=== PATIENT | male | born 1960 | race Caucasian/White ===

== ENCOUNTER 2018-05-06 18:57 | Inpatient (IN) | payer OTHER ==
[~2018-05-06] VITALS: Ht 165.1 cm; Wt 79.4 kg
--- NOTE | 2018-05-06 19:09 | NUR ---
Dr. Patel at bedside for MSE.
[2018-05-06] MEDS ORDERED: ONDANSETRON 4 MG/2 ML VIAL IV ONE (19:15)
[2018-05-06] MEDS ORDERED: HYDROMORPHONE 1 MG/1 ML DISP.SYRIN IV ONE (19:15)
[2018-05-06] MEDS ORDERED: IV NORMAL SALINE 1000 ML BAG IV ONE (19:15)
[2018-05-06] MEDS ORDERED: AMLO5TAB4 PO (19:16)
[2018-05-06] MEDS ORDERED: ONDANSETRON 4 MG/2 ML VIAL ONE (19:28)
[2018-05-06] MEDS ORDERED: HYDROMORPHONE 1 MG/1 ML DISP.SYRIN ONE (19:28)
--- NOTE | 2018-05-06 19:33 | NUR ---
Xray at bedside.
[2018-05-06 19:39] LABS: BASOPHILS % (AUTO) 0.5 % (0.0-2.0); EOSINOPHILS # (AUTO) 0.1 K/uL (0.0-0.7); EOSINOPHILS % (AUTO) 0.7 % (0.0-7.0); HEMATOCRIT 48.7 % (36.7-47.1); HEMOGLOBIN 16.6 g/dL (12.5-16.3); LYMPHOCYTES # (AUTO) 1.3 K/uL (20.0-40.0); LYMPHOCYTES % (AUTO) 12.3 % (20.5-51.5); MEAN CORPUSCULAR HEMOGLOBIN 29.2 uug (23.8-33.4); MEAN CORPUSCULAR HGB CONC 34 g/dL (32.5-36.3); MEAN CORPUSCULAR VOLUME 85.4 fL (73.0-96.2); MONOCYTES # (AUTO) 0.5 K/uL (2.0-10.0); MONOCYTES % (AUTO) 4.7 % (0.0-11.0); NEUTROPHILS # (AUTO) 8.7 K/uL (1.8-8.9); NEUTROPHILS % (AUTO) 81.8 % (38.5-71.5); PLATELET COUNT (AUTO) 117 K/uL (152-348); WHITE BLOOD COUNT (AUTO) 10.6 K/uL (3.6-10.2)
[2018-05-06 19:47] LABS: CREATININE 0.9 mg/dL (0.6-1.3); POTASSIUM 3.6 mmol/L (3.5-5.1)
[2018-05-06 19:52] LABS: BILIRUBIN,DIRECT 0.2 mg/dL (0.0-0.2); BILIRUBIN,TOTAL 0.7 mg/dL (0.2-1.0); TOTAL PROTEIN, SERUM 8.7 g/dL (6.4-8.2)
--- NOTE | 2018-05-06 20:00 | NUR ---
Pt states feeling better, pain and nausea is gone.
--- NOTE | 2018-05-06 20:10 | NUR ---
Pt out of ER for CT.
--- NOTE | 2018-05-06 20:34 | NUR ---
Pt back to ER from CT.
--- NOTE | 2018-05-06 20:55 | NUR ---
Dr. Patel on panel call with Bhargavi Grossman NP, accepted for tele admission, diagnosis abdominal pain.
--- NOTE | 2018-05-06 21:16 | NUR ---
Report given to Will brusher hand.
--- NOTE | 2018-05-06 21:30 | NUR ---
ADMITTED PATIENT IN TELE UNIT UNDER THE CARE OF RONALDO GONZALES REDUCTION FURNACE OPERATOR HELPER, BELONGING LIST DONE, SON INTERPRET FOR THE PATIENT, PATIENT SPEAK KITTITIAN UNDERSTAND LITTLE TAJIK. CONT TO MONITOR.
[2018-05-06 21:50] VITALS: BP 167/97
[2018-05-06] MEDS ORDERED: MAGNESIUM HYDROXIDE 30 ML LIQUID UDC PO PRN (22:45)
[2018-05-06] MEDS ORDERED: ZOLPIDEM 5 MG TABLET PO PRN (22:45)
[2018-05-06] MEDS ORDERED: hydrALAZINE HCL 20 MG/1 ML VIAL IV PRN (22:45)
[2018-05-06] MEDS ORDERED: ONDANSETRON 4 MG/2 ML VIAL IV PRN (22:45)
[2018-05-06] MEDS ORDERED: HYDROMORPHONE 2 MG/1 ML DISP.SYRIN IV PRN (22:45)
[2018-05-06] MEDS ORDERED: ACETAMINOPHEN 325 MG TABLET PO PRN (22:45)
[2018-05-06] MEDS: IV NS 1000 ML 1,000 ML IV PRN (23:58)
[2018-05-07 00:40] VITALS: BP 152/92
--- NOTE | 2018-05-07 01:39 | NUR ---
CALLED [employer] REPRESENTATIVE TO CLARRIFY MEDICATIONS APRESOLINE AND DILAUDID ORDER.
[2018-05-07 03:04] LABS: *BILIRUBIN,URIN NEGATIVE (NEGATIVE); *BLOOD, URINE 2+ (NEGATIVE); *CLARITY,URINE SLIGHTLY CLOUDY (CLEAR); *KETONES,URINE 1+ (NEGATIVE); *UROBILINOGEN,URINE 0.2 E.U./dl (NORMAL); LEUKOCYTE ESTERASE ,URINE NEGATIVE (NEGATIVE); NITRITE, URINE NEGATIVE (NEGATIVE); PH,URINE 8.5 (5.0-8.0); UGLUCOSE NEGATIVE (NEGATIVE)
[2018-05-07 03:24] LABS: *COLOR,URINE YELLOW (YELLOW); BACTERIA,URINE NONE SEEN /HPF (NONE SEEN); SQUAMOUS EPITHELIAL CELL,UR FEW /HPF (NONE SEEN); URINE AMORPHOUS PHOSPHATES MODERATE /HPF; WBC,URINE 0-3 /HPF (0-3)
[2018-05-07 03:25] LABS: MUCUS,URINE FEW /LPF (0-FEW)
[2018-05-07 04:00] VITALS: BP 136/85
--- NOTE | 2018-05-07 05:30 | NUR ---
PATIENT SLEPT MOST OF THE NIGHT, TELE MONITOR SINUS RHYTHM AT THIS TIME, NO SOB NO CHEST PAIN, NO FURTHER COMPLAIN OF ABDOMINAL PAIN, NO VOMITING NOTED, BP WAS ELEVATED EARLIER, MEDICATED EARLIER WITH APRESOLINE ORDERED WITH EFFECTIVE RESULTS. REMAINS NPO AT THIS TIME.
[2018-05-07] MEDS ORDERED: HYDROMORPHONE 2 MG/1 ML DISP.SYRIN IV PRN (07:15)
--- NOTE | 2018-05-07 07:15 | NUR ---
RECEIVED PATIENT ON BED, NO ACUTE DISTRESS NOTED. ALERT AND ORIENTED X4 GREENLAND[place] SPEAKING BUT ABLE TO MAKE NEEDS KNOWN, NO COMPLAINTS OF ABD PAIN AT THIS TIME. STILL ON NPO. IV ACCESS ON LEFT HAND #20 RUNNING NS @ 75 CC/HR INFUSING WELL. COMFORT MEASURES PROVIDED. WILL CONTINUE TO MONITOR CLOSELY.
[2018-05-07 07:27] LABS: BASOPHILS # (AUTO) 0.1 K/uL (0.0-8.0); BASOPHILS % (AUTO) 0.5 % (0.0-2.0); EOSINOPHILS # (AUTO) 0.1 K/uL (0.0-0.7); EOSINOPHILS % (AUTO) 0.5 % (0.0-7.0); HEMATOCRIT 45.6 % (36.7-47.1); HEMOGLOBIN 15.4 g/dL (12.5-16.3); LYMPHOCYTES # (AUTO) 1.4 K/uL (20.0-40.0); LYMPHOCYTES % (AUTO) 12.2 % (20.5-51.5); MEAN CORPUSCULAR HEMOGLOBIN 28.9 uug (23.8-33.4); MEAN CORPUSCULAR HGB CONC 34 g/dL (32.5-36.3); MEAN CORPUSCULAR VOLUME 85.8 fL (73.0-96.2); MONOCYTES # (AUTO) 0.9 K/uL (2.0-10.0); MONOCYTES % (AUTO) 7.5 % (0.0-11.0); NEUTROPHILS # (AUTO) 9.1 K/uL (1.8-8.9); NEUTROPHILS % (AUTO) 79.3 % (38.5-71.5); PLATELET COUNT (AUTO) 118 K/uL (152-348); RED BLOOD CELL COUNT(AUTO) 5.31 MIL/uL (4.06-5.63); WHITE BLOOD COUNT (AUTO) 11.5 K/uL (3.6-10.2)
[2018-05-07 08:11] LABS: CREATININE 0.8 mg/dL (0.6-1.3); MAGNESIUM 1.7 mg/dL (1.8-2.4); PHOSPHOROUS 3.2 mg/dL (2.5-4.9); POTASSIUM 3.6 mmol/L (3.5-5.1)
[2018-05-07] MEDS: AMLODIPINE 5 MG TABLET PO SCH (08:17)
--- NOTE | 2018-05-07 09:00 | NUR ---
PATIENT NOTED WITH IV ACCESS ON THE LEFT HAND #22 PAINFUL WHEN FLUSHED, REINSERTED NEW IV SITE ON THE RIGHT FOREARM #20 INTACT AND PATENT, RESUMED IVF.
[2018-05-07] MEDS ORDERED: IV NORMAL SALINE 0 ML IV ONE ×2 (09:40→09:45)
[2018-05-07] MEDS ORDERED: SWABABLE VALVE TRANSFER SET EA MC ONE (09:40)
[2018-05-07] MEDS ORDERED: IOHEXOL 300MG/ML 100 ML INFUS..BTL ONE ×2 (09:40→09:47)
[2018-05-07] MEDS ORDERED: HYDROMORPHONE 1 MG/1 ML DISP.SYRIN IV PRN (10:00)
[2018-05-07 11:02] VITALS: BP 128/68
[2018-05-07] MEDS: IV NS 1000 ML 1,000 ML IV PRN (12:04)
[2018-05-07] MEDS: MAGNESIUM SULFATE/D5W 100 ML IV SCH ×2 (13:10→14:15)
[2018-05-07 15:12] VITALS: BP 126/80
--- NOTE | 2018-05-07 19:30 | NUR ---
Rec'd pt in bed awake. A&O x3. Upper Sorbian speaking but able to relay simple needs. No s/s of acute distress noted. On RA. RFA 20g IV site in place and patent, infusing NS @ 100ml/hr and raj well. Continent with BRP. No complaint of abdominal pain or chest pain during previous shift. No episode of hypertension during previous shift per report. Pending oncology consult. Remains NPO. All safety precautions in place. Will continue to monitor.
[2018-05-07 20:03] VITALS: BP 129/79
[2018-05-08] MEDS: IV NS 1000 ML 1,000 ML IV PRN (04:52)
[2018-05-08 06:12] VITALS: BP 124/68
--- NOTE | 2018-05-08 06:37 | NUR ---
Pt in bed asleep. No s/s of acute distress noted. New IV site to left hand without s/s of complications noted. All safety precautions in place. No episode of abdominal pain or n/v during shift. Will endorse to oncoming nurse.
[2018-05-08 08:17] LABS: CREATININE 0.9 mg/dL (0.6-1.3); MAGNESIUM 2.1 mg/dL (1.8-2.4); POTASSIUM 3.8 mmol/L (3.5-5.1)
[2018-05-08] MEDS: AMLODIPINE 5 MG TABLET PO SCH (08:30)
[2018-05-08] MEDS ORDERED: IV NORMAL SALINE 250 ML IV ONE (08:32)
[2018-05-08] MEDS ORDERED: SWABABLE VALVE TRANSFER SET EA MC ONE (08:32)
[2018-05-08] MEDS ORDERED: IOHEXOL 300MG/ML 100 ML INFUS..BTL ONE (08:32)
[2018-05-08] MEDS ORDERED: BARIUM SULFATE 450 ML ORAL.SUSP ONE (08:32)
[2018-05-08 08:42] LABS: LACTATE DEHYDROGENASE 231 U/L (85-227)
--- NOTE | 2018-05-08 08:45 | NUR ---
Received patient, awake, alert x 4. No complaints of abdominal pain, no vomiting noted. Maintained NPO status. With G22 on left arm, patent and intact, running NS at 100cc/hr. Not in any form of distress. Seen and examined by Dr Cho. Dr ordered CT contrast of abdomen and pelvis with contrast. Secured consent, signed by patient.
--- NOTE | 2018-05-08 09:36 | NUR ---
Ultrasound guided thy bx cancelled per Dr Mas and Dr Cho
--- NOTE | 2018-05-08 10:30 | NUR ---
With family at bedside. Unhooked IV went to radiology for CT scan.
[2018-05-08 11:16] VITALS: BP 151/61
[2018-05-08] MEDS: CYANOCOBALAMIN 1000 MCG/ML VIAL IM SCH (11:25)
--- NOTE | 2018-05-08 11:47 | NUR ---
Family at bedside gave patient coffee about 180cc, 1 cup. Instructed patient and family to maintain patient on NPO status until further orders.
[2018-05-08] MEDS: ACETYLCYSTEINE 20% 800 MG/4 ML VIAL PO SCH ×2 (15:07→20:39)
[2018-05-08 15:09] VITALS: BP 123/77
[2018-05-08] MEDS ORDERED: IPRATROPIUM BROMIDE 0.5 MG/2.5 ML NEBU NEB PRN (15:45)
[2018-05-08] MEDS ORDERED: ALBUTEROL SULFATE 2.5 MG/ 0.5 ML NEBU NEB PRN (15:45)
--- NOTE | 2018-05-08 15:45 | NUR ---
Seen and examined by Dr Paz. Dr ordered, Albuterol and Atrovent q6h PRN, Breo Ellipta daily, and to start of full liquid diet.
--- NOTE | 2018-05-08 18:20 | NUR ---
Tolerated full liquid diet. No abdominal pain, nausea or vomiting noted.
--- NOTE | 2018-05-08 20:30 | NUR ---
RECEIVED PATIENT AWAKE, SITTING IN CHAIR AT BEDSIDE. PATIENT IS A/O X4. AZERI SPEAKING BUT ABLE TO MAKE SIMPLE NEEDS KNOWN. DENIES ANY PAIN OR DISCOMFORT. NO RESP. DISTRESS NOTED. VS WNL. H/L INTACT AND PATENT. CALL LIGHT IN REACH. ALL NEEDS ATTENDED. WILL CONTINUE TO MONITOR AND ASSESS.
[2018-05-08] MEDS: METOPROLOL TARTRATE 25 MG TABLET PO SCH (20:39)
[2018-05-08 20:51] VITALS: BP 120/66
--- NOTE | 2018-05-09 05:27 | NUR ---
PATIENT AWAKE IN BED. SLEPT WELL THROUGHOUT THE NIGHT. VSS. DENIES PAIN OR DISCOMFORT. DENIES SOB .NO RESP. DISTRESS NOTED. CALL LIGHT IN REACH. ALL NEEDS ATTENDED. WILL CONTINUE TO MONITOR AND ASSESS.
[2018-05-09 06:21] LABS: BASOPHILS # (AUTO) 0.1 K/uL (0.0-8.0); BASOPHILS % (AUTO) 0.8 % (0.0-2.0); EOSINOPHILS # (AUTO) 0.1 K/uL (0.0-0.7); EOSINOPHILS % (AUTO) 1.5 % (0.0-7.0); HEMATOCRIT 42.4 % (36.7-47.1); HEMOGLOBIN 14.3 g/dL (12.5-16.3); LYMPHOCYTES # (AUTO) 1.9 K/uL (20.0-40.0); LYMPHOCYTES % (AUTO) 23.5 % (20.5-51.5); MEAN CORPUSCULAR HEMOGLOBIN 28.9 uug (23.8-33.4); MEAN CORPUSCULAR HGB CONC 34 g/dL (32.5-36.3); MEAN CORPUSCULAR VOLUME 85.6 fL (73.0-96.2); MONOCYTES # (AUTO) 0.8 K/uL (2.0-10.0); MONOCYTES % (AUTO) 9.7 % (0.0-11.0); NEUTROPHILS # (AUTO) 5.1 K/uL (1.8-8.9); NEUTROPHILS % (AUTO) 64.5 % (38.5-71.5); PLATELET COUNT (AUTO) 104 K/uL (152-348); RED BLOOD CELL COUNT(AUTO) 4.96 MIL/uL (4.06-5.63); WHITE BLOOD COUNT (AUTO) 7.9 K/uL (3.6-10.2)
[2018-05-09 06:39] VITALS: BP 112/76
[2018-05-09 06:47] LABS: BILIRUBIN,TOTAL 0.8 mg/dL (0.2-1.0); CREATININE 0.9 mg/dL (0.6-1.3); PHOSPHOROUS 3.6 mg/dL (2.5-4.9); POTASSIUM 3.7 mmol/L (3.5-5.1); TOTAL PROTEIN, SERUM 7.3 g/dL (6.4-8.2)
[2018-05-09] MEDS: CYANOCOBALAMIN 1000 MCG/ML VIAL IM SCH (08:04)
[2018-05-09] MEDS: METOPROLOL TARTRATE 25 MG TABLET PO SCH ×2 (08:05→20:30)
[2018-05-09 08:06] LABS: AFP, TUMOR MARKER 2.9 ng/mL (0.0-8.3)
[2018-05-09] MEDS: FLUTICASONE/VILANTEROL 1 EACH BLST.W.DEV INH SCH (08:19)
[2018-05-09 11:06] VITALS: BP 106/66
[2018-05-09 16:28] VITALS: BP 102/60
[2018-05-09] MEDS ORDERED: CYANOCOBALAMIN 1000 MCG/ML VIAL IM SCH (17:30)
[2018-05-09 19:08] VITALS: BP 114/71
--- NOTE | 2018-05-09 19:30 | NUR ---
RECEIVED PATIENT AWAKE, SITTING IN THE CHAIR INSIDE ROOM. NO SIGNS OF ACUTE DISTRESS. NO COMPLAINTS OF PAIN OR SOB. IV HEPLOCK ON THE LEFT HAND IS INTACT. SAFETY MEASURES INITIATED. WILL CONTINUE TO MONITOR.
[2018-05-09] MEDS ORDERED: GOLYTELY 4000 ML BOTTLE PO ONE ×2 (21:00)
[2018-05-10 02:11] LABS: *URINE HCG, QUAL NEGATIVE
[2018-05-10 03:31] VITALS: BP 106/67
[2018-05-10] MEDS ORDERED: SORBITOL 70% SOLUTION 30 ML UDC PO ONE ×2 (05:00)
--- NOTE | 2018-05-10 06:17 | NUR ---
PATIENT SLEPT WELL THROUGHOUT THE NIGHT. PATIENT WAS ABLE TO DRINK MOST OF THE GOLYTELY AND FINISHED THE SORBITOL. EGD/COLONOSCOPY WILL BE DONE AT 8:30AM. NO SIGNS OF ACUTE DISTRESS. PATIENT HAD NO COMPLAINTS OF PAIN OR SOB. IV HEPLOCK ON THE LEFT HAND IS INTACT AND PATENT. PREOP CHECKLIST DONE.
--- NOTE | 2018-05-10 06:39 | NUR ---
NPO FOR EGD/COLONOSCOPY PROCEDURE
--- NOTE | 2018-05-10 08:05 | NUR ---
pt went to gi lab via bed in stable condition
[2018-05-10] MEDS: CYANOCOBALAMIN 1000 MCG/ML VIAL IM SCH (10:28)
[2018-05-10] MEDS: METOPROLOL TARTRATE 25 MG TABLET PO SCH (10:28)
[2018-05-10] MEDS: FLUTICASONE/VILANTEROL 1 EACH BLST.W.DEV INH SCH (10:28)
--- NOTE | 2018-05-10 10:28 | NUR ---
pt received back from recovery room via bed in stable condition
[2018-05-10 11:40] VITALS: BP 133/81
[2018-05-10 15:40] VITALS: BP 102/77
[2018-05-10] MEDS ORDERED: PNEUMOCOCCAL 23-VAL P-SAC VAC 0.5 ML VIAL IM ONE (17:15)
[2018-05-10] MEDS ORDERED: INFLUENZA VACCINE 2018-2019 0.5 ML DISP.SYRIN IM ONE (17:15)
[2018-05-10] MEDS ORDERED: OMEP20TA20 PO (18:06)
[2018-05-10] MEDS ORDERED: IRR NORMAL SALINE IRRIGATION 1,000 ML BOTTLE IR ONE (18:29)
[2018-05-10] MEDS ORDERED: IRR NORMAL SALINE IRRIGATION 2000 ML BOTTLE IR ONE (18:29)
[2018-05-10] MEDS ORDERED: PROPOFOL 200 MG/20 ML BOTTLE IV ONE (18:29)
[2018-05-10] MEDS ORDERED: IV LACTATED RINGERS SOLUTION 1,000 ML BAG IV ONE (18:29)
--- NOTE | 2018-05-10 18:36 | NUR ---
d/c orders received noted and carried out,d/c heplock per md orders d/c instruction and education given to the pt,pt said he will follow up with his dr ,pt left the facility via private car in stable condition
== END 2018-05-10 18:30 | disposition home or self-care (01) | DRG 644 ==
LOC: ER 18:57 → TELE 21:18 → MED 05-07 10:13
PROVIDERS: ADMIT Nurse Practitioner Acute Care; ATTEND Internal Medicine
PROC: 0DB68ZX Excision of Stomach, Via Natural or Artificial Opening Endoscopic, Diagnostic (ICD-10-PCS; principal; 2018-05-10)
PROC: 0DBN8ZX Excision of Sigmoid Colon, Via Natural or Artificial Opening Endoscopic, Diagnostic (ICD-10-PCS; principal; 2018-05-10)
PROC: 0DBL8ZX Excision of Transverse Colon, Via Natural or Artificial Opening Endoscopic, Diagnostic (ICD-10-PCS; principal; 2018-05-10)
DX: E05.20 Thyrotoxicosis with toxic multinodular goiter without thyrotoxic crisis or storm (principal); K55.9 Vascular disorder of intestine, unspecified; K29.70 Gastritis, unspecified, without bleeding; K44.9 Diaphragmatic hernia without obstruction or gangrene; B96.81 Helicobacter pylori [H. pylori] as the cause of diseases classified elsewhere; D12.5 Benign neoplasm of sigmoid colon; K25.9 Gastric ulcer, unspecified as acute or chronic, without hemorrhage or perforation; K26.9 Duodenal ulcer, unspecified as acute or chronic, without hemorrhage or perforation; K64.8 Other hemorrhoids; K31.4 Gastric diverticulum; R59.1 Generalized enlarged lymph nodes; E53.8 Deficiency of other specified B group vitamins; E11.9 Type 2 diabetes mellitus without complications; D69.6 Thrombocytopenia, unspecified; D50.9 Iron deficiency anemia, unspecified; N40.0 Benign prostatic hyperplasia without lower urinary tract symptoms; Q76.49 Other congenital malformations of spine, not associated with scoliosis; F17.210 Nicotine dependence, cigarettes, uncomplicated; J43.9 Emphysema, unspecified; K40.90 Unilateral inguinal hernia, without obstruction or gangrene, not specified as recurrent; Z85.038 Personal history of other malignant neoplasm of large intestine; R16.1 Splenomegaly, not elsewhere classified; I70.0 Atherosclerosis of aorta; I10 Essential (primary) hypertension; R94.8 Abnormal results of function studies of other organs and systems
CPT/HCPCS: 36415; 70030-TC; 70491; 71045; 71260; 82105; 82378; 82747; 83605; 83615; 83690; 83735; 84100; 84153; 84443; 84481; 84703; 85014; 85025; 85730; 87040; 87086; 88342; 90686; 93005; A4217; A4663; G0378; J0360; J1170; J2405; J3420; J3475; J3490; J7030; J7050; J7120; Q9951; Q9967